=== PATIENT | male | born 1945 | race Caucasian/White ===

== ENCOUNTER 2025-01-26 17:39 | Outpatient (REF) | payer OTHER, SELFPAY ==
[2025-01-26 18:01] LABS: Appearance Urine Clear (Clear); Bilirubin Urine Negative (Negative); Blood Urine Negative (Negative); Color Urine Amber (Yellow); Glucose Urine Negative (Negative); Ketones Urine Negative (Negative); Leukocyte Esterase Urine Negative (Negative); Nitrite Urine Negative (Negative); Protein Urine Negative (Negative); Specific Gravity Urine 1.025 (1.000-1.030); Urobilinogen Urine 0.2 (0.2-1.0); pH Urine 5.5 (5.0-8.5)
[2025-01-26 18:09] LABS: Bacteria Urine Few; RBC Urine 0-2 (0-2)
== END 2025-01-26 17:40 | disposition home or self-care (01) ==
LOC: NPINS 17:39
PROVIDERS: PCP Family Medicine; Visit Provider Nurse Practitioner Gerontology
DX: R53.81 Other malaise (principal)
CPT/HCPCS: 81001; 87086

== ENCOUNTER 2025-07-03 15:38 | Outpatient (CLI) | payer OTHER, SELFPAY | END 2025-07-03 15:39 | disposition home or self-care (01) | PROVIDERS: PCP Family Medicine; Visit Provider Student in an Organized Health Care Education/Training Program | DX: R41.82 Altered mental status, unspecified (principal); R29.810 Facial weakness; R10.9 Unspecified abdominal pain | CPT/HCPCS: A0425; A0433 ==

== ENCOUNTER 2025-07-03 16:08 | Emergency (ER) | payer OTHER, SELFPAY ==
[2025-07-03] VITALS (53 sets, daily range): BP systolic 153–183; BP diastolic 92–119; PULSE 78–93; RESP 11–127; TEMP 36.2; O2SAT 93–97; BMI 31.5
--- NOTE | 2025-07-03 16:09 | CRLHL7_ITS ---
For Patients: As a result of the Cures Act, medical imaging exams and procedure reports are released immediately into your electronic medical record. You may view this report before your referring provider. If you have questions, please contact your health care provider. INDICATION: Altered mental status. TECHNIQUE: CT head without contrast. COMPARISON: None. FINDINGS: Brain: No intra or extra-axial fluid collection, mass or edema. Mild periventricular white matter hypoattenuation, likely chronic small vessel ischemic disease. No hydrocephalus. Other: No displaced calvarial fracture. Visualized portions of the orbits, mastoids and paranasal sinuses are unremarkable. IMPRESSION: Senescent changes with no gross acute intracranial abnormality. Report communicated to the ordering clinician by the [facility] tele radiology team at time of dictation. Please note that all CT scans at this facility use dose modulation, iterative reconstruction, and/or weight-based dosing when appropriate to reduce radiation dose to as low as reasonably achievable. Dictated by Melquiades Campo MD @ 07/03/2025 4:40:12 PM (Electronically Signed)
--- OUTSIDE RECORDS SUMMARY | 2025-07-03 16:09 | XMS_ITS | Clinical Summary ---
Author Organization [facility] Address [address] [place] [id number] Care Team Providers Care Machine Bunch Maker Name Role Phone Richard Jorge MD Unavailable [phone] Holger Urena MD Unavailable Derrick Ramos MD Primary Care Provider Carol Fishman RN Unavailable [phone] Lesa Zapien RN Unavailable [phone] Allergies Active Allergy Reactions Criticality Noted Date Comments Risperidone Extrapyramidal Side Effect 05/09/20 20 Medications Diaper,Brief, Adult,DisposableIn dications:Urinary frequency,Other urinary incontinence For home use. Size large, medium to heavy absorbency as needed on level of incontinence. 1 box 06/01/20 20 Active pantoprazole (PROTONIX) 40 mg delayed-release tabletIndications: Esophagitis, unspecified Take 1 tablet by mouth once daily. 30 tablet 06/02/20 20 Active sennosides-docusat e, 8.6-50 mg, (SENNA-S) 8.6-50 mg tabletIndications: Other constipation Take 2 tablets by mouth at bedtime. 60 tablet 06/02/20 20 Active melatonin (MELATIN) 3 mg tabletIndications: Other insomnia Take 2 tablets by mouth at bedtime. 60 tablet 06/02/20 20 Active pravastatin (PRAVACHOL) 20 mg tabletIndications: Mixed hyperlipidemia Take 1 tablet by mouth at bedtime. 30 tablet 06/02/20 20 Active guar gum 4 gm (NUTRISOURCE FIBER) packetIndications: Other constipation Take 1 Packet by mouth once daily. Mix 1 packet in 4 oz of beverage/soft food. 30 Packet 06/02/20 20 Active QUEtiapine (SEROQUEL) 50 mg tabletIndications: Bipolar 1 disorder (HC),Major neurocognitive disorder (HC) Take 1 tablet (50 mg) daily in the afternoon. May also take 1 tablet (50 mg) every 6 hours as needed for hallucinations, agitation, restlessness. 45 tablet 06/02/20 20 Active QUEtiapine (SEROQUEL) 300 mg tabletIndications: Bipolar 1 disorder (HC),Major neurocognitive disorder (HC) Take 1 tablet by mouth at bedtime. 30 tablet 06/02/20 20 Active ammonium lactate 12% topical (LACHYDRIN) 12 % lotionIndications: Dry skin Apply topically to affected area(s) 2 times daily. 1 Bottle 06/02/20 20 Active artificial tears, peg 400-propylene glycol, (SYSTANE) 0.4-0.3 % drop ophthalmicIndicati ons:Dry eyes Place 1-2 Drops into both eyes every 2 hours if needed for Dry Eyes. 1 Bottle 06/02/20 20 Active divalproex (DEPAKOTE) 125 mg Delayed-Release tabletIndications: Bipolar 1 disorder (HC),Major neurocognitive disorder (HC) Take 1 tablet by mouth every morning. 30 tablet 06/02/20 20 Active divalproex (DEPAKOTE) 250 mg Delayed-Release tabletIndications: Major neurocognitive disorder (HC),Bipolar 1 disorder (HC) Take 1 tablet by mouth at bedtime. 30 tablet 06/02/20 20 Active donepeziL (ARICEPT) 5 mg tabletIndications: Major neurocognitive disorder (HC) Take 1 tablet by mouth at bedtime. 30 tablet 06/02/20 20 Active hydrALAZINE (APRESOLINE) 10 mg tabletIndications: Essential hypertension Take 2 tablets by mouth every 6 hours if needed (sbp>180). 30 tablet 06/02/20 20 Active propranoloL (INDERAL) 10 mg tabletIndications: Major neurocognitive disorder (HC),Anxiety Take 1 tablet (10 mg) twice a day. May also take 1 tablet (10 mg) twice a day as needed for anxiety, tremors. 75 tablet 06/02/20 Active tamsulosin (FLOMAX) 0.4 mg capsuleIndications :Urinary frequency Take 1 capsule by mouth once daily after a meal. Take at dinner. 30 capsule 06/02/20 Active traZODone (DESYREL) 100 mg tabletIndications: Other insomnia Take 1 tablet by mouth at bedtime. 30 tablet 06/02/20 Active traZODone (DESYREL) 50 mg tabletIndications: Other insomnia,Major neurocognitive disorder (HC) Take 0.5 tablet (25 mg) daily in the afternoon. May also take 0.5 tablet (25 mg) two times a day as needed for restlessness, agitation. 30 tablet 06/02/20 Active CPAPIndications:OS A (obstructive sleep apnea) CPAP machine for home use at pressure: 9 cmw , Heated humidifier x 1 q 5 yr, Humidifier chamber x 1 q 6 mo, Full face mask x1 q 3mos, with cushion x 1 q mo, Heated tubing x 1 q 3 mo, Headgear x 1 q 6 mo, Filters: Disposable x 2 q mo non-disposable filters x1 q 6mo, Length of Need: 99 months, Frequency of use: Daily 1 Device 06/14/20 Active CPAPIndications:OS A (obstructive sleep apnea) replacement CPAP machine for home use at pressure: 9 cmw , Heated humidifier x 1 q 5 yr, Humidifier chamber x 1 q 6 mo, nasal mask x1 q 3mos, With nasal cushion x 2 q mo, Heated tubing x 1 q 3 mo, Headgear x 1 q 6 mo, Filters: Disposable x 2 q mo non-disposable filters x1 q 6mo, Length of Need: 99 months, Frequency of use: Daily 1 Device 04/06/20 Active Active Problems Problem Noted Date Diagnosed Date 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 07/30/2012 Pain medication agreement 02/08/2012 Bilateral Glenohumeral Arthritis 07/20/2011 ACP (advance care planning) 07/02/2011 Overview (07/30/2012): Discussed. 07/02/2011 Discussed and referred.07/30/2012 Mixed hyperlipidemia 08/23/2009 Overview (09/01/2009): #s too high; Recheck 01/2010 Impaired fasting glucose 08/23/2009 Routine general medical exam ination at a health care facility 08/11/2008 Overview (09/01/2009): colonoscopy 06/2005: Polyp Recheck 10 yrs Stress Test negative 08/2009 Essential hypertension 05/19/2007 Unspecified sleep apnea 05/19/2007 Overview (08/23/2009): Uses CPAP and sleeps well. Resolved Problems Problem Noted Date Diagnosed Date Resolved Date FPC (current) use of anticoagulants 05/05/2012 05/29/2012 Hip osteoarthritis 12/17/2011 2 Bipolar affective disorder, currently depressed, moderate 11/24/2007 03/01/2020 Immunizations Immunization Administration Dates Next Due Influenza, IIV3 (Age >=3 years) 10/02/2012 Pneumococcal Poly,23-Valent (Pneumovax) 07/02/20 11 Pneumococcal conj 13-Valent (Prevnar 13) 019 Td (Age >=7 Years) 06/24/1997 Td, Preservative Free (age >= 7 Years) 7 05/20/2017 Tdap 06/05/2010 Tuberculin (PPD) 05/31/2020 Zoster (Zostavax-ZVL, live) 05/20/2007 Family History Medical History Relation Name Comments Heart Disease Brother 2 Sean at 68 of [place] Hyperlipidemia Brother 2 Sean Psychiatric illness Brother 2 Sean bipolar Other Father Jordan at 86 - ol d age Cancer Mother Nika pancreas Diabetes Paternal Grandmother Cancer Paternal Uncle jaw bone/jaja joellen abuse Good Health Sister 2 Relation Name Status Comments Brother 1 Sean: Twin Brother Alive CABG & Valve Repair Brother 2 Sean Father Jordan (Age 85) Maternal Grandfather Maternal Grandmother Maternal Uncle Merchristy Prostate Ca Mother Nika (Age 80) Paternal Grandfather Paternal Grandmother Paternal Uncle Sister 1 Patricia Alive Sister 2 Son 1 Ken Alive Son 2 Henry Alive Social History Tobacco Use Types Packs/Day Years Used Date Smoking Tobacco: Never Smokeless Tobacco: Never Tobacco Cessation:Counseling Given: Yes Alcohol Use Standard Drinks/Week Comments No 0 (1 standard drink = 0.6 oz pur e alcohol) rare PHQ-2 Answer Date Recorded PHQ-2 TOTAL SCORE 6 03/30/2021 Social Connections Answer Date Recorded Frequency of Communication with Friends and Fami ly Not on file 12/02/2021 Financial Resource Strain Answer Date R ecorded Difficulty of Paying Living Expenses Not on file 12/02/2021 Difficulty of Paying Living Expenses Not on file 12/02/2021 Sex and Gender Information Value Date Recorded Sex Assigned at Not on file Legal Sex 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 Gender Identity Not on file Sexual Orientation Not on file 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 Not on file Not on file Obstetrics History Last Filed Vital Signs Vital Sign Reading Time Taken Comments Blood Pressure 126/71 06/06/2020 7:46 AM CDT Pulse 75 06/06/2020 7:46 AM CDT Temperature 36.6 C (97.9 F) 06/06/2020 7:46 AM CDT Respiratory Rate 16 06/06/2020 7:46 AM CDT Oxygen Saturation 99% 06/06/2020 6:20 AM CDT Inhaled Oxygen Concentration - - Weight 86.9 kg (191 lb 8 oz) 06/02/2020 3:40 PM CDT Height 181.6 cm (5' 11.5) 04/08/2020 7:51 PM CD T Body Mass Index 26.34 04/08/2020 7:51 PM CDT Plan of Treatment Health Maintenance Due Date Last Done Comments Zoster (shingles) series for age 50+ (2 of 3) 07/15/2007 05/20/2007 RSV vaccine for adults or (1 - 1-dose 75+ series) 2020 Tetanus booster 06/05/2020 06/05/2010, 05/02, 06/24/1997 Medicare Wellness for age 65+ 11/26/2020 11/26/2019, 07/23/2013, 07/30/2012, Additional history exists BMI (ht and wt on same day) for age 18+ 12/28/2020 12/28/2019, 11/26/2019, 06/05/2018, Additional history exists Depression screening for age 12+ 03/30/2022 03/30/2021, 04/06/2020, 03/28/2020, Additional history exists COVID-19 vaccine series ( season) 2024 Influenza Vaccine (#1) 2025 10/02/2012 Pneumococcal series for age 50+ Completed 11/26/2019, 07/02/2011 Hepatitis B series for 19+ Aged Out N o longer eligible based on patient's age to complete this topic Medical Devices Implanted Type Area Conveyor System Dispatcher Device Identifier Shelf Expiration Date Model / Serial / Lot Cmnt Bone 20g Simplex P Non Atb Mv - [id number] Implanted:Qty: 1 on 02/13/2017 by Emilio Lance MD at [facility] Right: Shoulder [employer] 03/31/2019 [id number] # / / [id number] Glenoid Szlg 40mm Aeq Perform - [id number] Implanted:Qty: 1 on 02/13/2017 by Emilio Lance MD at [facility] Right: Shoulder [employer] 05/31/2020 [id number] / [id number] / Stem Hum Sz5b Ascend Flex Std - [id number] Implanted:Qty: 1 on 02/13/2017 by Emilio Lance MD at [facility] Right: Shoulder [employer] 12/06/2020 [id number]# / [id number] / Stb Humeral Head Implanted:Qty: 1 on 02/13/2017 by Emilio Lance MD at [facility] Right: Shoulder [employer] 10/08/2021 [id number] / [id number] / Description:51MM X 23MM Ecc HIGH(4) - CoCr Insurance MEDICARE PB ONLY MEDICARE PART B HB ONLY MEDICARE PART A HB ONLY CIG[employer] MEDICARE SUPPLEMENT SOLUTIONS MEDICARE PPS WORKERS COMP Advance Directives Documents on File Type Date Recorded Patient Housing Officer Expl anation POLST 05/31/2020 Healthcare Directive 03/24/2020 020 * DNR (Latest Code Status on File) Date Activated Date Inactivated Comments 05/31/2020 9:17 AM 06/06/2020 10:41 AM Discussed wi th /healthcare agent. POLST completed. Question Answer Comments Code Status Discussion: DiscussedOther (specify in comments): * Full Code Date Activated Date Inactivated Comments 04/08/2020 5:05 PM 05/31/2020 9:16 AM * Full Code Date Activated Date Inactivated Comments 03/04/2020 8:49 PM 03/18/2020 3:20 PM * Full Code Date Activated Date Inactivated Comments 02/13/2017 9:53 AM 02/14/2017 4:02 PM * Full Code Date Activated Date Inactivated Comments 02/13/2017 1:04 AM 02/13/2017 9:53 AM Care Teams Machine Bunch Maker Relationship Specialty Start Date End Date Derrick Ramos MD [address] [facility] [address] [place], [place] [address] PCP - General Family Practice 03/29/21 Richard Jorge MD [address] [place] [address] Surgery - Orthopedics 07/30/12 Holger Urena MD [address] [place] [address] Surgery - Urology 07/23/13 Carol Fishman RN [address] [id number] Datapower Developer - [facility] Registered Nurse 09/26/21 Lesa Zapien RN [address] [facility] [address] [place] [address] Datapower Developer - [facility] Registered Nurse 09/26/21
--- NOTE | 2025-07-03 16:23 | ED.NEUROSD ---
HPI - Neuro Symptoms/Deficit General Time Seen by Provider: 16:12 Date Seen: 07/03/25 Chief Complaint: Neuro Symptoms/Altered Deficit Stated Complaint: Stroke Time Seen by Provider: 07/03/25 16:10 Source: patient, EMS and RN notes reviewed Mode of arrival: EMS Limitations: altered mental status History of Present Illness HPI Narrative: This 80-year-old male is brought in by EMS from [facility] where he reportedly was known to have deficits since 7:00 a.m. this morning. EMS was not called until 15 minutes prior to now. Patient reportedly is normally conversive, talkative. He has left facial drooping. He would not follow commands, was minimally communicative. They really could not get stroke scale or assess hand news wire photo operator strength or extremity strength as he was not following commands. He was hypertensive with blood pressures 170s over 100, appear to be in sinus rhythm. They did get a glucose of 125. Patient seemed to be a little bit more alert. They did note left eye drooping. The did call stroke code in the field appropriately, patient was met in the ambulance [place] and taken directly for head CT. He is not answering questions, will not do hand news wire photo operator strength. When ask him to wiggle his toes, do see him wiggle his toes, he will stick out his tongue. Seems to have left eye droop, when I lift is I up, his left eye seems to move medially as maybe without on lateral gaze. Pupil is pinpoint. Difficult to assess facial function further. Do not know any of patient's medications or any of his medical history at this time. He will get a head CT, if his last known well is 7:00 a.m., he is well out of lytic therapy candidacy. My initial assessment is this is possibly altered mental status as well as the need to consider acute neurologic change. Later, review of his records sent with him show him to be DNR DNI, oral antibiotics only, no IV or IM. Comfort focus treatment. His a history of bipolar disorder. He has Alzheimer's disease, vascular dimension noted as well. Hypertension, hyperlipidemia. Anxiety disorder. Dry eye syndrome. Obstructive sleep apnea. GERD. Constipation. Obesity. Edema. Insomnia. History of prostate cancer, treated with cryotherapy 2013. Peripheral arterial disease bilateral legs. He has osteoporosis with history of T12 compression fracture. History of esophagitis. He has had lumbar surgery. Left hip replacement, open umbilical herniorrhaphy. Right total shoulder arthroplasty. Per his paperwork, requires ADLs assistance and transfer assistance. In his records, there is documentation of staff reporting episodes of neurologic events marked by dysarthria and and lethargy will working with occupational therapy in June of 2025. Onset (ago): hour(s) Related Data Home Medications ?Medication ?Instructions ?Recorded ?Confirmed acetaminaphine ES 500 mg PO TID 07/03/25 07/03/25 divalproex 125 mg capsule,delayed 125 mg PO Q12H 07/03/25 07/03/25 release sprinkle (Depakote Sprinkles) magnesium hydroxide 311 mg 311 mg PO QHS PRN 07/03/25 07/03/25 chewable tablet (Sim Milk of Magnesia) pantoprazole 40 mg tablet,delayed 40 mg PO DAILY 07/03/25 07/03/25 release peg 400-propylene glycol 0.4 %-0.3 1 drp ophthalmic (eye) QID PRN 07/03/25 07/03/25 % eye drops (Systane (propylene glycol)) polyethylene glycol 3350 17 17 g PO DAILY 07/03/25 07/03/25 gram/dose oral powder (Miralax) polytrim opthalmic 07/03/25 quetiapine 300 mg tablet (Seroquel) 300 mg PO QHS 07/03/25 07/03/25 sennosides 8.6 mg capsule (senna) 8.6 mg PO DAILY 07/03/25 07/03/25 systane night ophalmic 1 % HS 07/03/25 tamaulosin 0.4 mg PO DAILY 07/03/25 07/03/25 trazodne 50 mg PO HS 07/03/25 07/03/25 Previous Rx's ?Medication ?Instructions ?Recorded cephalexin 500 mg tablet 500 mg PO TID #20 tabs 07/03/25 Allergies Allergy/AdvReac Type Severity Reaction Status Date / Time risperidone Allergy Unknown Verified 07/03/25 16:24 Review of Systems Status of ROS: Reports: unobtainable due to mental status Exam Const: Vital Signs, click to edit/add: Vital Signs - 24 hr 07/03/25 16:13 07/03/25 16:19 07/03/25 16:23 Temperature 97.2 F L Pulse Rate Pulse Rate [Pulse Oximeter] 85 Respiratory Rate 18 127 H 24 Blood Pressure 164/112 H Blood Pressure [Ri ght Upper Arm] 164/112 H Pulse Oximetry 95 Oxygen Delivery Me thod Room Air 07/03/25 16:32 07/03/25 16:45 07/03/25 16:47 Temperature Pulse Rate Pulse Rate [Pulse Oximeter] Respiratory Rate 19 18 17 Blood Pressure 162/109 H 171/96 H Blood Pressure [Ri ght Upper Arm] Pulse Oximetry Oxygen Delivery Me thod 07/03/25 17:00 07/03/25 17:02 07/03/25 17:15 Temperature Pulse Rate 86 82 82 Pulse Rate [Pulse Oximeter] Respiratory Rate 21 38 H 20 Blood Pressure 171/106 H Blood Pressure [Ri ght Upper Arm] Pulse Oximetry 96 96 96 Oxygen Delivery Me thod 07/03/25 17:17 07/03/25 17:18 07/03/25 17:30 Temperature Pulse Rate 86 82 82 Pulse Rate [Pulse Oximeter] Respiratory Rate 30 H 19 22 Blood Pressure 166/111 H Blood Pressure [Ri ght Upper Arm] Pulse Oximetry 96 96 96 Oxygen Delivery Me thod 07/03/25 17:32 07/03/25 17:45 07/03/25 17:47 Temperature Pulse Rate 88 85 93 Pulse Rate [Pulse Oximeter] Respiratory Rate 18 17 18 Blood Pressure 178/104 H 170/111 H Blood Pressure [Ri ght Upper Arm] Pulse Oximetry 97 97 97 Oxygen Delivery Me thod 07/03/25 17:48 07/03/25 18:00 07/03/25 18:02 Temperature Pulse Rate 84 81 79 Pulse Rate [Pulse Oximeter] Respiratory Rate 29 H 21 20 Blood Pressure 183/110 H Blood Pressure [Ri ght Upper Arm] Pulse Oximetry 96 95 95 Oxygen Delivery Me thod 07/03/25 18:15 07/03/25 18:18 07/03/25 18:30 Temperature Pulse Rate 81 86 Pulse Rate [Pulse Oximeter] Respiratory Rate 18 19 19 Blood Pressure 175/109 H Blood Pressure [Ri ght Upper Arm] Pulse Oximetry 94 94 Oxygen Delivery Me thod 07/03/25 18:32 Temperature Pulse Rate Pulse Rate [Pulse Oximeter] Respiratory Rate 24 Blood Pressure 173/110 H Blood Pressure [Ri ght Upper Arm] Pulse Oximetry Oxygen Delivery Me thod After patient is back from CT, he is in exam room 8. Cardiac monitoring and pulse oximetry of been place a we can track any arrhythmia, hypoxia. He is more alert, attempts to talk to me, speech is slightly dysarthric but he is able to verbalize and he is certainly talking more. His left eye a is ptotic. Underlying sclera is injected but mildly so. There is no tearing, no periorbital erythema or swelling. Right eye is open, moves eye around. He denies pain anywhere when ask him but does complain pain when they are trying to get a new IV in his left arm, the IV placed by EMS is not functioning. CV regular rate and rhythm, no significant murmur heard, breathing easy on room air, no tachypnea, lungs clear anteriorly and in the axilla. He has a ventral hernia in the center of his abdomen or diastasis rectus, no evidence of any masses there or entrapment, he is not tender. Abdomen overall is soft, no organomegaly, no rebound or guarding noted. Still wiggle his legs when ask him to and his feet. Is not lifting the legs up off the bed. Tongue has some tremors, lips seem mildly tremulous but no head titubation. Documenting provider has reviewed patient's vital signs: yes Course Course ED Course: Patient proceeded to CT of his head on arrival. He doesn't have IV access for CT angiography Reevaluation(s) Time of Reevaluation #1: 16:59 Reevaluation #1: Patient's is here, she did not see him yesterday, is not aware of what time he goes to bed usually. He awoke different unchanged this morning, he was not at his baseline any longer. He is comfort cares. Reviewed with her that the plan was to do CT angiogram of his brain vessels, if there was a large lesion, he could get sent potentially for evacuation of the thrombus. She would not want that, wants more comfort or focus based care. She does not want to proceed with CT angiography, she does understand that he could have had an underlying stroke which we will not be able to further evaluate. She would consider treatment for infection such as UTI. 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 They have worked with Dr. Magallon at [facility]. He had it 3 years ago, is activating again. Unclear if he has ptosis or if he is just holding this left eye shut now. Time of Reevaluation #2: 18:21 Reevaluation #2: Have reviewed that laboratory evaluation is not showing anything concerning. They would like us to proceed with catheterization to obtain a urine specimen, would be willing to treat to that. Did review that I had seen in a note from occupational therapy that he had been having spells of unresponsiveness or lethargy with dysarthria. This spell today was just longer, more profound. We again reviewed what would happen if he would want to proceed with workup for stroke and treatment for stroke. They really want to keep him comfortable and do not want to intervene with further testing such as CT angiograms or MRI. They would never have him go for intervention to remove thrombus from a large vascular distribution stroke. They would never want lytics. They would treat to simple UTI. I do not have his chest x-ray report back yet nor have a seen it but will review that with them later. His labs to this point are reassuring and not pointing to anything definitive for metabolic derangement. We did discuss that patients with dementia can have progressive neurologic changes. His notes that he is not eating, she does not want a feeding tube. I did review with them that progression to not eating with dementia does happen. It is fine to not have him not eat and allow natural in this situation. We did spend some time discussing it. Patient's and his son were present, did become a little bit tearful, did review with them that I am here to support whatever they need. I certainly agree with the approach that they are taking and readily support this. We will check a urinalysis via in and out catheter to obtain a specimen as it is our only way. Otherwise, may be time to consider hospice as part of his overall plan. They do not want to do the COVID swab, will cancel this. Did update nursing staff so they know to collect the urinalysis via in and out catheterization. Time of Reevaluation #3: 19:07 Reevaluation #3: Have reviewed that patient's urine is indeterminate. It is difficult to say if he is having symptoms from UTI. We did review that there is some mild change with leukocyte esterase, some white cells and there are bacteria. I would not say that this is definitive for UTI. They would like to treat, we do have an IV in place. Given that there was concerns with getting orals in him right now, we have agreed upon doing an IV dose of Rocephin. We do plan on sending him back to the longterm. There is another son here who mass to food be time for hospice consult. Reviewed with him that I think this is a perfect time to explore that. We did discuss if he should live beyond 6 months then it can be renewed. I do think there is a chance that he is on a decline but is difficult to say from just such a short period of knowing him. We will absolutely try to treat for urinary tract infection, we can await urine culture. Will have nursing staff start oral antibiotics tomorrow evening. If he is unable to take orals tomorrow, plan for cessation of medications can be considered and moving to comfort care. Consultations Consultation #1: Spoke with Dr. Jameson stroke Neurology. We do not have IV access which is limited the CT angiograms. She would like those done. She would like to know about MRI capacity tomorrow. I am unclear if patient was found this way at 7:00 a.m. or if he had a change in status at 7:[address] he is out of lytic therapy candidacy. I will try to figure that out further. Will make sure the imaging gets pushed to her. Did let Dr. Jameson know that the is not proceeding with CT angiography. She absolutely understands and agrees with the 's decision. If patient does stay in the hospital may want a formal consult tomorrow, we just need to let them know. Time: 16:44 Vital Signs Vital signs: Initial Vital Signs Temperature 97.2 F L 07/03/25 16:13 Temperature Source Temporal Artery Scan 07/03/25 16:13 Pulse Rate 85 07/03/25 16:13 Respiratory Rate 18 07/03/25 16:13 Blood Pressure 164/112 H 07/03/25 16:13 Blood Pressure Mean 129 H 07/03/25 16:13 Blood Pressure Position Supine 07/03/25 16:13 Pulse Oximetry 95 07/03/25 16:13 Oxygen Delivery Method Room Air 07/03/25 16:13 Vital Signs Temperature 97.2 F L 07/03/25 16:13 Pulse Rate 85 07/03/25 16:13 Respiratory Rate 18 07/03/25 16:13 Blood Pressure 164/112 H 07/03/25 16:13 Pulse Oximetry 95 07/03/25 16:13 Oxygen Delivery Method Room Air 07/03/25 16:13 Temperature 97.2 F L 07/03/25 16:13 Pulse Rate 86 07/03/25 18:18 Respiratory Rate 24 07/03/25 18:32 Blood Pressure 173/110 H 07/03/25 18:32 Pulse Oximetry 94 07/03/25 18:18 Oxygen Delivery Method Room Air 07/03/25 16:13 MDM - Neuro Symptoms/Deficit Lab Data Attestation: I reviewed the patient's lab results. Labs: Lab Results 07/03/25 07/03/25 Range/Units 16:51 18:30 WBC 6.98 (4.50-11.00) K/uL RBC 4.50 (4.30-5.90) m/uL Hgb 15.8 (13.5-17.5) gm/dL Hct 45.3 (37.0-53.0) % MCV 101 H (80-100) fL MCH 35 H (26-34) pg MCHC 35 (32-36) gm/dL RDW Coeff of Maxime 12.4 (11.5-15.5) % Plt Count 201 (140-440) K/uL Neut % (Auto) 70.9 (42.0-72.0) % Lymph % (Auto) 22.3 (20-44) % Lea % (Auto) 5.9 (0.0-11.0) % Eos % (Auto) 0.4 (0.0-7.0) % Baso % (Auto) 0.4 (0.0-3.0) % Neut # (Auto) 4.94 (1.7-7.0) K/uL Lymph # (Auto) 1.56 (0.90-2.90) K/uL Lea # (Auto) 0.40 (0.00-0.90) K/UL Eos # (Auto) 0.03 (0.00-0.50) K/uL Baso # (Auto) 0.03 (0.00-0.30) K/uL Abs Immat Gran (auto) 0.01 (0.00-0.30) K/uL Imm/Tot Granulo (auto) 0.1 % INR 0.97 (0.91-1.10) APTT 32 (23-33) Seconds Sodium 136 (135-149) mmol/L Potassium 3.7 (3.6-5.1) mmol/L Chloride 103 (96-114) mmol/L Carbon Dioxide 25 (20-32) mmol/L Anion Gap 8 (7-15) mEq/L BUN 14 (7-30) mg/dL Creatinine 0.7 (0.5-1.5) mg/dL Estimated Creat Clear 57.00 Estimated GFR 93 ml/min Glucose 99 (60-115) mg/dL Lactate 2.1 H (0.5-1.9) mmol/L Calcium 9.1 (8.4-10.6) mg/dL Total Bilirubin 0.9 (0.1-1.5) mg/dL AST 23 (12-35) U/L ALT 16 (4-50) U/L Alkaline Phosphatase 59 (40-150) U/L Troponin I < 0.01 (0.01-0.04) ng/mL C-Reactive Protein < 0.5 L (0.5-1.0) mg/dL Total Protein 7.3 (6.0-8.3) g/dL Albumin 4.3 (3.3-5.0) g/dL Urine Color Yellow (Yellow) Urine Appearance Cloudy A (Clear) Urine pH 7.5 (5.0-8.5) Ur Specific [place] 1.020 (1.000-1.030) Urine Protein 1+ A (Negative) Urine Glucose (UA) Negative (Negative) Urine Ketones 1+ A (Negative) Urine Blood Negative (Negative) Urine Nitrite Negative (Negative) Urine Bilirubin Negative (Negative) Urine Urobilinogen 1.0 (0.2-1.0) Ur Leukocyte Esterase 1+ A (Negative) Urine RBC 0-2 (0-2) Urine WBC 10-25 A (0-5) Ur Squamous Epith Cells None (None-Few) Urine Bacteria Many A (None) Imaging Data CT scan - head: Attestation: I have reviewed the pertinent imaging results. My impression: I did visualize patient's head CT in certainly did not appreciate any acute bleed. Will await Radiology over-read. Radiologist's impression: Patient: ALEXI JAMESON Facility:?[facility] Patient ID:?[id number] Site Patient ID:?[id number]. Site :?1945 Study:?CT-Head W/O CODE STROKE-07/03/2025 4:18:12 PM Ordering Physician:Adilson Whiting Final Report: INDICATION: Altered mental status. TECHNIQUE: CT head without contrast. COMPARISON: None. FINDINGS: Brain: No intra or extra-axial fluid collection, mass or edema. Mild periventricular white matter hypoattenuation, likely chronic small vessel ischemic disease. No hydrocephalus. Other: No displaced calvarial fracture. Visualized portions of the orbits, mastoids and paranasal sinuses are unremarkable. IMPRESSION: Senescent changes with no gross acute intracranial abnormality. Report communicated to the ordering clinician by the [facility] radiology team at time of dictation. Please note that all CT scans at this facility use dose modulation, iterative reconstruction, and/or weight-based dosing when appropriate to reduce radiation dose to as low as reasonably achievable. Dictated by Melquiades Campo MD @ 07/03/2025 4:40:12 PM (Electronic Signature) Chest x-ray: Attestation: I have reviewed the pertinent imaging results. Radiologist's impression: Patient: ALEXI JAMESON Facility:?[facility] Patient ID:?[id number] Site Patient ID:?[id number]. Site :?1945 Study:?XRay-Chest PORTABLE-07/03/2025 5:59:12 PM Ordering Physician:?Esme Whiting Final Report: INDICATION: Cough. Altered mental status. TECHNIQUE: Chest 1 views. COMPARISON: None. FINDINGS: Cardiovasculature and mediastinum: Heart size is normal. Unremarkable mediastinum. Lungs and pleural spaces: Lungs are clear. No sign of infiltrate or mass. No sign of pleural effusion. No pneumothorax. Bones and soft tissues: No significant findings. IMPRESSION: Negative chest. No sign of acute CHF or pneumonia. Dictated by Lamine Mata MD @ 07/03/2025 6:23:03 PM (Electronic Signature) ECG Data Attestation: I personally reviewed and interpreted this ECG as follows: (Normal sinus rhythm, 89 beats per minute. Incomplete right bundle branch block, some artifact noted.) ECG interpretation date: 07/03/25 ECG interpretation time: 17:03 Prior ECG tracings: not available for review Discharge Plan Discharge Clinical Impression: Acute alteration in mental status, Abnormal urinalysis Patient Disposition: Home w/ Parent or Adult Condition: Unchanged Instructions: Altered Mental Status (ED) Additional Instructions: Head CT did not show any evidence of stroke or acute brain bleed but the full stroke workup was not done due to family request and patient's advanced directives. It mick been made clear that family would not want to proceed with any thrombolytics or any significant interventions and thus further workup of stroke is not indicated. Patient had 1+ leukocyte esterase, bacteria and some white cells on an in and out catheterized specimen. Was given 1 g IV Rocephin while here. Oral antibiotics can be initiated tomorrow. If the patient is not recovering to a higher level of function eating, continues to be unable to take orals, I do think consideration for movement to comfort cares needs to happen. Family and I did discuss possibility of consultation for hospice, I do think it is appropriate at this time. If the urine culture does not show infection, oral antibiotics can be stopped; anticipate the urine culture maybe done late Saturday or Saturday morning. Prescriptions: New cephalexin 500 mg tablet 500 mg PO TID Qty: 20 0RF No Action divalproex [Depakote Sprinkles] 125 mg capsule, delayed rel sprinkle 125 mg PO Q12H polyethylene glycol 3350 [Miralax] 17 gram/dose powder 17 g PO DAILY pantoprazole 40 mg tablet,delayed release (DR/EC) 40 mg PO DAILY quetiapine [Seroquel] 300 mg tablet 300 mg PO QHS senna 8.6 mg capsule 8.6 mg PO DAILY systane night ophalmic 0.3 % 1 % HS tamaulosin 0.4 mg PO DAILY trazodne 50 mg PO HS acetaminaphine ES 500 mg PO TID Patient Comments: 2 tablets Systane (propylene glycol) 0.4-0.3 % drops 1 drp ophthalmic (eye) QID PRN Patient Comments: left eye polytrim opthalmic Patient Comments: 1 drop L eye 6 times a day Roney Esparza of Magnesia 311 mg tablet,chewable 311 mg PO QHS PRN Follow Up/Referrals: Derrick Ramos MD [Primary Care Provider, Family Practice] Stand Alone Forms: [employer] Info Instructions
[2025-07-03 16:56] LABS: Lactate* 2.1 mmol/L (0.5-1.9)
[2025-07-03 17:05] LABS: Hematocrit 45.3 % (37.0-53.0); Hemoglobin* 15.8 gm/dL (13.5-17.5); Immature Granulocytes Abs Auto 0.01 K/uL (0.00-0.30); Immature Granulocytes Pct Auto 0.1 %; Lymphocytes Absolute Auto 1.56 K/uL (0.90-2.90); Mean Corpuscular HGB Conc 35 gm/dL (32-36); Mean Corpuscular Hemoglobin 35 pg (26-34); Mean Corpuscular Volume 101 fL (80-100); RDW Coefficient of Variation % 12.4 % (11.5-15.5); Red Blood Count 4.50 m/uL (4.30-5.90); White Blood Count* 6.98 K/uL (4.50-11.00)
[2025-07-03 17:06] LABS: Slide Review Reflex No
[2025-07-03 17:16] LABS: Albumin* 4.3 g/dL (3.3-5.0); Chloride* 103 mmol/L (96-114); Sodium* 136 mmol/L (135-149)
[2025-07-03 17:17] LABS: Potassium* 3.7 mmol/L (3.6-5.1)
[2025-07-03 17:19] LABS: Alanine Aminotransferase* 16 U/L (4-50); Aspartate Amino Transferase* 23 U/L (12-35); Blood Urea Nitrogen* 14 mg/dL (7-30); Creatinine* 0.7 mg/dL (0.5-1.5); Est. Creatinine Clearance* 57.00; Estimated Glomerular Filt Rate 93 ml/min
[2025-07-03 17:20] LABS: Alkaline Phosphatase* 59 U/L (40-150); Anion Gap 8 mEq/L (7-15); Bilirubin Total* 0.9 mg/dL (0.1-1.5); Calcium* 9.1 mg/dL (8.4-10.6); Carbon Dioxide* 25 mmol/L (20-32); Glucose* 99 mg/dL (60-115); Total Protein* 7.3 g/dL (6.0-8.3)
[2025-07-03 17:29] LABS: INR 0.97 (0.91-1.10); Prothrombin Time 13.7 Seconds
--- NOTE | 2025-07-03 17:35 | CRLHL7_ITS ---
For Patients: As a result of the Cures Act, medical imaging exams and procedure reports are released immediately into your electronic medical record. You may view this report before your referring provider. If you have questions, please contact your health care provider. INDICATION: Cough. Altered mental status. TECHNIQUE: Chest 1 views. COMPARISON: None. FINDINGS: Cardiovasculature and mediastinum: Heart size is normal. Unremarkable mediastinum. Lungs and pleural spaces: Lungs are clear. No sign of infiltrate or mass. No sign of pleural effusion. No pneumothorax. Bones and soft tissues: No significant findings. IMPRESSION: Negative chest. No sign of acute CHF or pneumonia. Dictated by Lamine Mata MD @ 07/03/2025 6:23:03 PM (Electronically Signed)
[2025-07-03 18:46] LABS: Appearance Urine Cloudy (Clear)
[2025-07-03] MEDS: cefTRIAXone 1 GM in 0.9 % SODIUM CHLORIDE Mini-bag 100 ML IVPB (19:25)
== END 2025-07-03 22:22 | disposition home or self-care (01) ==
PROVIDERS: Emergency Provider Family Medicine; PCP Family Medicine
DX: R41.82 Altered mental status, unspecified (principal); R82.90 Unspecified abnormal findings in urine; I73.9 Peripheral vascular disease, unspecified
CPT/HCPCS: 36415; 70450; 71045; 80053; 81001; 83605; 84484; 85025; 85610; 85730; 86140; 87086; 87631; 93005; 94761; 96365; 99284; 99285; J0696

== ENCOUNTER 2025-08-13 17:20 | Outpatient (REF) | payer OTHER, SELFPAY ==
--- OUTSIDE RECORDS SUMMARY | 2025-08-14 00:09 | XMS_ITS | Clinical Summary ---
Author Organization [facility] Address [address] [place] [address] Care Team Providers Care Clinical Data Assistant Name Role Phone Richard Jorge MD Unavailable [phone] Holger Urena MD Unavailable Derrick Ramos MD Primary Care Provider Carol Fishman RN Unavailable [phone] Lesa Zapien RN Unavailable [phone] Allergies Active Allergy Reactions Criticality Noted Date [...] Problem Noted Date Diagnosed Date Resolved Date alf (current) use of anticoagulants 05/05/2012 05/29/2012 Hip [...] Disease Brother 2 Sean at 68 of [place] Hyperlipidemia Brother 2 Sean Psychiatric illness Brother [...] on file 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 Gender Identity Not on file Sexual Orientation [...] history exists COVID-19 vaccine series ( season) 2025 Influenza Vaccine (#1) 2025 10/02/2012 Pneumococcal series for age 50+ Completed 11/26/2019, 07/02/2011 Hepatitis B series for 19+ Aged Out N o longer eligible based on patient's age to complete this topic Medical Devices Implanted Type Area Mica Spreader Device Identifier Shelf Expiration Date Model / Serial / Lot Cmnt Bone 20g Simplex P Non Atb Mv - [id number] Implanted:Qty: 1 on 02/13/2017 by Emilio Lance MD at [facility] Right: Shoulder [employer] 03/31/2019 [id number] # / / [id number] Glenoid Szlg 40mm Aeq Perform - [id number] Implanted:Qty: 1 on 02/13/2017 by Emilio Lance MD at [facility] Right: Shoulder [employer] 05/31/2020 [id number] / [id number] / Stem Hum Sz5b Ascend Flex Std - [id number] Implanted:Qty: 1 on 02/13/2017 by Emliio Lance MD at [facility] Right: Shoulder [employer] 12/06/2020 [id number]# / [id number] / Stb Humeral Head Implanted:Qty: 1 on 02/13/2017 by Emilio Lance MD at [facility] Right: Shoulder [employer] 10/08/2021 [id number] / [id number] / Description:51MM X 23MM Ecc HIGH(4) - CoCr Insurance MEDICARE PB ONLY MEDICARE PART B HB ONLY MEDICARE PART A HB ONLY [employer]IG[employer] MEDICARE SUPPLEMENT SOLUTIONS MEDICARE PPS WORKERS COMP Advance Directives Documents on File Type Date Recorded 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 05/31/2020 Healthcare Directive 03/24/2020 [...] 1:04 AM 02/13/2017 9:53 AM Care Teams Clinical Data Assistant Relationship Specialty Start Date End Date Derrick Ramos MD [address] [facility] [address] [place], [place] [address] PCP - General Family Practice 03/29/21 Richard Jorge MD [address] [place] [address] Surgery - Orthopedics 07/30/12 Holger Urena MD [address] [place] [address] Surgery - Urology 07/23/13 Carol Fishman RN [address] [id number] Health Researcher - [facility] Registered Nurse 09/26/21 Lesa Zapien RN [address] [facility] [address] [place] [address] Health Researcher - [facility] Registered Nurse 09/26/21
[2025-08-14 19:34] LABS: PCR FLU A Negative PCR FLU A (Negative); PCR FLU B Negative PCR FLU B (Negative); SARS PCR* Negative SARS-CoV-2 (Negative)
== END 2025-08-13 17:21 | disposition home or self-care (01) ==
LOC: NPINS 17:20
PROVIDERS: PCP Family Medicine; Visit Provider Family Medicine
DX: R05.9 Cough, unspecified (principal)
CPT/HCPCS: 87631